=== PATIENT | female | born 1980 | race Caucasian/White ===

== ENCOUNTER 2017-07-13 14:36 | Inpatient (IN) | payer MEDICAID, OTHER ==
[~2017-07-13] VITALS: Ht 167.6 cm; Wt 52.4 kg
[~2017-07-13 14:36] MED LIST: BACL-19 PO; CHOL2000 PO; CYAN100063 PO; DIPH50CA PO; DOCU-131 PO; FLUO20CA8 PO; LACT10SO5 PO; LORA-445 PO; LORA0.5T PO; METF500T4 PO; MULT1TAB76 PO; OMEP-110 PO; PHYT1LIQ PO; RIFA550T4 PO; SULF1TAB24 PO; THIA100T6 PO; TRAM50TA2 PO; TRAZ100T15 PO
[2017-07-13] MEDS ORDERED: OMNIPAQUE 350 MG/ML, 100ML BOTTLE ONE (15:07)
[2017-07-13 15:44] LABS: BASOPHILS # (AUTO) 0.03 x10^3/uL (0-0.1); BASOPHILS % (AUTO) 0 % (0-1); EOSINOPHILS # (AUTO) 0.05 x10^3/uL (0-0.4); EOSINOPHILS % (AUTO) 1 % (1-7); LYMPHOCYTES # (AUTO) 1.26 x10^3/uL (1-3.4); LYMPHOCYTES % (AUTO) 14 % (22-44); MD NO; MEAN CORPUSCULAR HEMOGLOBIN 35.4 pg (27.0-34.8); MEAN CORPUSCULAR VOLUME 104.1 fL (80-100); MEAN PLATELET VOLUME 8.1 fL (7.4-10.4); MONOCYTES % (AUTO) 16 % (2-9); NEUTROPHILS # (AUTO) 6.25 x10^3/uL (1.8-6.8); NEUTROPHILS % (AUTO) 70 % (42-75); PLATELET COUNT 235 x10^3/uL (130-400); RED BLOOD COUNT 4.31 x10^6/uL (3.82-5.3); RED CELL DISTRIBUTION WIDTH 14.2 % (9.6-15.2)
[2017-07-13 15:50] LABS: INTERNATIONAL NORMALIZED RATIO 0.97 (0.93-1.1)
[2017-07-13] MEDS ORDERED: THIAMINE 200 MG in SODIUM CHLORIDE 0.9% 50 ML IV ONE (16:00)
[2017-07-13 16:28] LABS: FOLATE LEVEL > 20.0 ng/mL (3.1-17.5)
[2017-07-13] MEDS ORDERED: DOCUSATE 100 MG CAPSULE PO PRN (16:30)
[2017-07-13] MEDS ORDERED: ACETAMINOPHEN 325 MG TABLET PO PRN (16:30)
[2017-07-13] MEDS ORDERED: ONDANSETRON 2MG/ML, 2ML IVPush PRN (16:30)
[2017-07-13] MEDS ORDERED: morphine SULFATE 10 MG/ML, 1ML IVPush PRN (16:30)
[2017-07-13 17:04] LABS: MICROSCOPIC INDICATED
[2017-07-13 17:16] LABS: CULTURE INDICATED? NO
[2017-07-13] MEDS ORDERED: ENOXAPARIN 40 MG/0.4 ML ONE (17:30)
[2017-07-13 17:42] VITALS: BP 127/82
[2017-07-13] MEDS: ENOXAPARIN 40 MG/0.4 ML SQ SCH (17:50)
[2017-07-13] MEDS: D5%-0.45% NACL 1,000 ML IV SCH (17:50)
[2017-07-13 19:05] VITALS: BP 113/83
[2017-07-13] MEDS: FLUOXETINE HCL 20 MG CAPSULE PO SCH (21:00)
[2017-07-13] MEDS: RIFAXIMIN 550 MG TABLET PO SCH (21:00)
[2017-07-13] MEDS: INSULIN LISPRO 100 UNITS/ML, PEN SQ-INSULIN SCH (21:00)
[2017-07-14 01:41] VITALS: BP 110/80
[2017-07-14] MEDS: D5%-0.45% NACL 1,000 ML IV SCH (03:33)
[2017-07-14 04:51] VITALS: BP 127/82
[2017-07-14 05:23] LABS: CHLORIDE 118 mmol/L (98-107)
[2017-07-14 05:40] LABS: ANION GAP 13 mmol/L (5-15); CALCIUM 9.2 mg/dL (8.5-10.1); CREATININE 0.66 mg/dL (0.55-1.02)
[2017-07-14 05:54] LABS: MEAN CORPUSCULAR HEMOGLOBIN 33.6 pg (27.0-34.8); MEAN CORPUSCULAR HGB CONC 33.6 g/dL (32.4-35.8); MEAN PLATELET VOLUME 9.1 fL (7.4-10.4); PLATELET COUNT 298 x10^3/uL (130-400); RED BLOOD COUNT 3.93 x10^6/uL (3.82-5.3); RED CELL DISTRIBUTION WIDTH 13.8 % (9.6-15.2)
[2017-07-14 06:14] LABS: BASOPHILS # (AUTO) 0.05 x10^3/uL (0-0.1); BASOPHILS % (AUTO) 0 % (0-1); EOSINOPHILS # (AUTO) 0.07 x10^3/uL (0-0.4); EOSINOPHILS % (AUTO) 1 % (1-7); LYMPHOCYTES # (AUTO) 2.05 x10^3/uL (1-3.4); LYMPHOCYTES % (AUTO) 19 % (22-44); MD SCAN; MONOCYTES # (AUTO) 1.55 x10^3/uL (0.2-0.8); MONOCYTES % (AUTO) 14 % (2-9); NEUTROPHILS # (AUTO) 7.34 x10^3/uL (1.8-6.8); NEUTROPHILS % (AUTO) 66 % (42-75)
[2017-07-14] MEDS: INSULIN LISPRO 100 UNITS/ML, PEN SQ-INSULIN SCH ×3 (07:00→21:00)
[2017-07-14 07:11] VITALS: BP 118/79
[2017-07-14] MEDS ORDERED: POTASSIUM CHLORIDE 20 MEQ in DEXTROSE 5% 1,000 ML IV SCH (09:00)
[2017-07-14 09:47] LABS: FREE T4 (FREE THYROXINE) 0.42 ng/dL (0.76-1.46)
[2017-07-14] MEDS: LEVOTHYROXINE 100 MCG INJ IVPush SCH (10:02)
[2017-07-14 13:00] VITALS: BP 124/92
[2017-07-14] MEDS: RIFAXIMIN 550 MG TABLET PO SCH ×2 (13:17→21:40)
[2017-07-14] MEDS: THIAMINE 100MG TABLET PO SCH (13:17)
[2017-07-14] MEDS: MULTIVITS,STRESS FORMULA 1 TABLET PO SCH (13:17)
[2017-07-14 14:50] LABS: ANION GAP 9 mmol/L (5-15); CALCIUM 8.9 mg/dL (8.5-10.1); CHLORIDE 115 mmol/L (98-107); CREATININE 0.56 mg/dL (0.55-1.02)
[2017-07-14] MEDS: ENOXAPARIN 40 MG/0.4 ML SQ SCH (18:22)
[2017-07-14 20:16] VITALS: BP 108/74
[2017-07-14] MEDS: FLUOXETINE HCL 20 MG CAPSULE PO SCH (21:40)
[2017-07-15 00:40] VITALS: BP 119/83
[2017-07-15] MEDS: INSULIN LISPRO 100 UNITS/ML, PEN SQ-INSULIN SCH ×4 (03:00→20:24)
[2017-07-15 07:54] VITALS: BP 122/87
[2017-07-15 08:30] LABS: ALANINE AMINOTRANSFERASE 50 U/L (12-78); ALBUMIN 2.6 g/dL (3.4-5.0); ANION GAP 9 mmol/L (5-15); CALCIUM 8.9 mg/dL (8.5-10.1); CHLORIDE 112 mmol/L (98-107); CREATININE 0.42 mg/dL (0.55-1.02)
[2017-07-15 08:42] LABS: BASOPHILS # (AUTO) 0.04 x10^3/uL (0-0.1); BASOPHILS % (AUTO) 0 % (0-1); EOSINOPHILS # (AUTO) 0.25 x10^3/uL (0-0.4); EOSINOPHILS % (AUTO) 2 % (1-7); LYMPHOCYTES # (AUTO) 2.71 x10^3/uL (1-3.4); LYMPHOCYTES % (AUTO) 23 % (22-44); MD NO; MEAN CORPUSCULAR HEMOGLOBIN 33.5 pg (27.0-34.8); MEAN CORPUSCULAR HGB CONC 33.7 g/dL (32.4-35.8); MEAN CORPUSCULAR VOLUME 99.2 fL (80-100); MEAN PLATELET VOLUME 8.5 fL (7.4-10.4); MONOCYTES # (AUTO) 1.07 x10^3/uL (0.2-0.8); MONOCYTES % (AUTO) 9 % (2-9); NEUTROPHILS # (AUTO) 7.51 x10^3/uL (1.8-6.8); NEUTROPHILS % (AUTO) 65 % (42-75); PLATELET COUNT 283 x10^3/uL (130-400); RED BLOOD COUNT 3.36 x10^6/uL (3.82-5.3); RED CELL DISTRIBUTION WIDTH 13.9 % (9.6-15.2)
[2017-07-15 08:43] LABS: ALKALINE PHOSPHATASE 157 U/L (45-117); BILIRUBIN,TOTAL 0.7 mg/dL (0.2-1.0); TOTAL PROTEIN 6.9 g/dL (6.4-8.2)
[2017-07-15] MEDS: POTASSIUM CHLORIDE 20 MEQ PACKET PO SCH ×2 (09:00→20:23)
[2017-07-15] MEDS ORDERED: POTASSIUM CHLORIDE 20 MEQ TAB.ER.PRT PO SCH ×2 (09:00→21:00)
[2017-07-15] MEDS: MULTIVITS,STRESS FORMULA 1 TABLET PO SCH ×2 (09:29→11:23)
[2017-07-15] MEDS: RIFAXIMIN 550 MG TABLET PO SCH ×2 (09:29→20:24)
[2017-07-15] MEDS: THIAMINE 100MG TABLET PO SCH ×2 (09:29→11:23)
[2017-07-15] MEDS: LEVOTHYROXINE 100 MCG INJ IVPush SCH (09:29)
[2017-07-15] MEDS ORDERED: POTASSIUM CHLORIDE 20 MEQ PACKET ONE (09:49)
[2017-07-15 12:57] VITALS: BP 115/81
[2017-07-15] MEDS ORDERED: MAGNESIUM SULFATE PMX 4GM/100M 100 ML IV ONE (16:00)
[2017-07-15] MEDS: DEXTROSE 5% 500 ML IV SCH ×2 (16:00→22:40)
[2017-07-15] MEDS: ENOXAPARIN 40 MG/0.4 ML SQ SCH (17:24)
[2017-07-15 19:18] VITALS: BP 121/79
[2017-07-15] MEDS: FLUOXETINE HCL 20 MG CAPSULE PO SCH (20:23)
[2017-07-16 01:07] VITALS: BP 119/82
[2017-07-16] MEDS: INSULIN LISPRO 100 UNITS/ML, PEN SQ-INSULIN SCH ×4 (03:00→20:42)
[2017-07-16 08:13] VITALS: BP 124/82
[2017-07-16 08:24] LABS: BASOPHILS # (AUTO) 0.05 x10^3/uL (0-0.1); BASOPHILS % (AUTO) 1 % (0-1); EOSINOPHILS # (AUTO) 0.25 x10^3/uL (0-0.4); EOSINOPHILS % (AUTO) 2 % (1-7); LYMPHOCYTES % (AUTO) 22 % (22-44); MD NO; MEAN CORPUSCULAR HEMOGLOBIN 33.5 pg (27.0-34.8); MEAN CORPUSCULAR HGB CONC 33.8 g/dL (32.4-35.8); MEAN CORPUSCULAR VOLUME 99.3 fL (80-100); MEAN PLATELET VOLUME 8.4 fL (7.4-10.4); MONOCYTES # (AUTO) 0.71 x10^3/uL (0.2-0.8); MONOCYTES % (AUTO) 7 % (2-9); NEUTROPHILS % (AUTO) 69 % (42-75); PLATELET COUNT 290 x10^3/uL (130-400); RED BLOOD COUNT 3.45 x10^6/uL (3.82-5.3)
[2017-07-16 08:33] LABS: ALANINE AMINOTRANSFERASE 50 U/L (12-78); ALBUMIN 2.6 g/dL (3.4-5.0); ANION GAP 9 mmol/L (5-15); CALCIUM 8.2 mg/dL (8.5-10.1); CHLORIDE 108 mmol/L (98-107); CREATININE 0.39 mg/dL (0.55-1.02)
[2017-07-16 09:04] LABS: ALKALINE PHOSPHATASE 159 U/L (45-117); BILIRUBIN,TOTAL 0.9 mg/dL (0.2-1.0); TOTAL PROTEIN 7.1 g/dL (6.4-8.2)
[2017-07-16] MEDS: NEUTRA PHOS K 250 MG TABLET PO SCH ×2 (10:01→20:38)
[2017-07-16] MEDS: THIAMINE 100MG TABLET PO SCH (10:01)
[2017-07-16] MEDS: MULTIVITS,STRESS FORMULA 1 TABLET PO SCH (10:01)
[2017-07-16] MEDS: RIFAXIMIN 550 MG TABLET PO SCH ×2 (10:01→20:38)
[2017-07-16] MEDS: DEXTROSE 5% 1,000 ML IV SCH (10:29)
[2017-07-16] MEDS: LEVOTHYROXINE 100 MCG INJ IVPush SCH (10:58)
[2017-07-16 14:57] VITALS: BP 127/88
[2017-07-16] MEDS: ENOXAPARIN 40 MG/0.4 ML SQ SCH (15:28)
[2017-07-16] MEDS: THIAMINE 500 MG in SODIUM CHLORIDE 0.9% 50 ML IV SCH ×2 (15:50→20:38)
[2017-07-16] MEDS ORDERED: THIAMINE 100 MG/ML, 2ML IV SCH (16:00)
[2017-07-16] MEDS ORDERED: DEXTROSE 5% 1,000 ML IV SCH (16:00)
[2017-07-16 19:00] VITALS: BP 116/80
[2017-07-16] MEDS: FLUOXETINE HCL 20 MG CAPSULE PO SCH (20:38)
[2017-07-17] MEDS: DEXTROSE 5% 1,000 ML IV SCH ×2 (00:16→16:00)
[2017-07-17 01:17] VITALS: BP 121/83
[2017-07-17] MEDS: INSULIN LISPRO 100 UNITS/ML, PEN SQ-INSULIN SCH ×4 (03:00→21:00)
[2017-07-17 06:35] VITALS: BP 128/84
[2017-07-17] MEDS: THIAMINE 500 MG in SODIUM CHLORIDE 0.9% 50 ML IV SCH ×3 (08:43→20:43)
[2017-07-17] MEDS ORDERED: LEVOTHYROXINE 100 MCG INJ IVPush SCH (09:00)
[2017-07-17 09:15] LABS: BASOPHILS # (AUTO) 0.02 x10^3/uL (0-0.1); BASOPHILS % (AUTO) 0 % (0-1); EOSINOPHILS # (AUTO) 0.21 x10^3/uL (0-0.4); EOSINOPHILS % (AUTO) 2 % (1-7); LYMPHOCYTES # (AUTO) 1.57 x10^3/uL (1-3.4); LYMPHOCYTES % (AUTO) 15 % (22-44); MD NO; MEAN CORPUSCULAR HEMOGLOBIN 33.1 pg (27.0-34.8); MEAN CORPUSCULAR HGB CONC 33.4 g/dL (32.4-35.8); MEAN CORPUSCULAR VOLUME 99.1 fL (80-100); MEAN PLATELET VOLUME 8.9 fL (7.4-10.4); MONOCYTES # (AUTO) 0.84 x10^3/uL (0.2-0.8); MONOCYTES % (AUTO) 8 % (2-9); NEUTROPHILS # (AUTO) 8.21 x10^3/uL (1.8-6.8); NEUTROPHILS % (AUTO) 76 % (42-75); PLATELET COUNT 278 x10^3/uL (130-400); RED BLOOD COUNT 3.42 x10^6/uL (3.82-5.3); RED CELL DISTRIBUTION WIDTH 14.3 % (9.6-15.2)
[2017-07-17] MEDS: RIFAXIMIN 550 MG TABLET PO SCH ×2 (09:17→20:43)
[2017-07-17] MEDS: MULTIVITS,STRESS FORMULA 1 TABLET PO SCH (09:17)
[2017-07-17 09:25] LABS: ALANINE AMINOTRANSFERASE 60 U/L (12-78); ALBUMIN 2.7 g/dL (3.4-5.0); ANION GAP 8 mmol/L (5-15); CALCIUM 8.8 mg/dL (8.5-10.1); CHLORIDE 107 mmol/L (98-107); CREATININE 0.47 mg/dL (0.55-1.02)
[2017-07-17 09:28] LABS: ALKALINE PHOSPHATASE 164 U/L (45-117); BILIRUBIN,TOTAL 1.2 mg/dL (0.2-1.0); TOTAL PROTEIN 7.2 g/dL (6.4-8.2)
[2017-07-17] MEDS: NEUTRA PHOS K 250 MG TABLET PO SCH ×2 (10:04→20:43)
[2017-07-17] MEDS ORDERED: LEVOTHYROXINE 100 MCG INJ IVPush ONE (13:30)
[2017-07-17 13:54] VITALS: BP 119/82
[2017-07-17 16:16] LABS: MICROSCOPIC INDICATED
[2017-07-17 16:17] LABS: CULTURE INDICATED? YES
[2017-07-17] MEDS: ENOXAPARIN 40 MG/0.4 ML SQ SCH (16:52)
[2017-07-17 20:27] VITALS: BP 115/89
[2017-07-17] MEDS: FLUOXETINE HCL 20 MG CAPSULE PO SCH (20:43)
[2017-07-18 02:00] VITALS: BP 112/74
[2017-07-18] MEDS: INSULIN LISPRO 100 UNITS/ML, PEN SQ-INSULIN SCH ×4 (03:00→21:00)
[2017-07-18] MEDS: DEXTROSE 5% 1,000 ML IV SCH (05:00)
[2017-07-18 07:21] VITALS: BP 115/76
[2017-07-18] MEDS ORDERED: DOCUSATE 100 MG CAPSULE NG PRN (09:00)
[2017-07-18] MEDS ORDERED: LEVOTHYROXINE 100 MCG INJ IVPush SCH (09:00)
[2017-07-18] MEDS ORDERED: NEUTRA PHOS K 250 MG TABLET NG SCH (09:00)
[2017-07-18] MEDS: RIFAXIMIN 550 MG TABLET PO SCH ×2 (09:14→22:39)
[2017-07-18] MEDS: MULTIVITS,STRESS FORMULA 1 TABLET NG SCH (09:14)
[2017-07-18] MEDS: THIAMINE 500 MG in SODIUM CHLORIDE 0.9% 50 ML IV SCH (09:14)
[2017-07-18 13:51] VITALS: BP 109/74
[2017-07-18] MEDS ORDERED: THIAMINE 100MG TABLET PO SCH (15:09)
[2017-07-18] MEDS ORDERED: THIAMINE 100 MG in SODIUM CHLORIDE 0.9% 50 ML IV SCH (15:30)
[2017-07-18] MEDS: D5%-0.9% NACL+KCL 20MEQ 1,000 ML IV SCH (15:50)
[2017-07-18] MEDS: CEFTRIAXONE PMX 1GM/50ML 50 ML IV SCH (16:35)
[2017-07-18] MEDS: ENOXAPARIN 40 MG/0.4 ML SQ SCH (16:35)
[2017-07-18 19:06] VITALS: BP 117/82
[2017-07-18] MEDS: FLUOXETINE HCL 20 MG CAPSULE NG SCH (22:39)
[2017-07-19 02:49] VITALS: BP 117/76
[2017-07-19] MEDS: INSULIN LISPRO 100 UNITS/ML, PEN SQ-INSULIN SCH ×4 (03:00→21:00)
[2017-07-19 05:19] LABS: BASOPHILS # (AUTO) 0.08 x10^3/uL (0-0.1); BASOPHILS % (AUTO) 1 % (0-1); EOSINOPHILS # (AUTO) 0.22 x10^3/uL (0-0.4); EOSINOPHILS % (AUTO) 2 % (1-7); LYMPHOCYTES # (AUTO) 2.24 x10^3/uL (1-3.4); LYMPHOCYTES % (AUTO) 21 % (22-44); MD NO; MEAN CORPUSCULAR HEMOGLOBIN 33.7 pg (27.0-34.8); MEAN CORPUSCULAR VOLUME 99.1 fL (80-100); MEAN PLATELET VOLUME 8.7 fL (7.4-10.4); MONOCYTES # (AUTO) 1.09 x10^3/uL (0.2-0.8); MONOCYTES % (AUTO) 10 % (2-9); NEUTROPHILS # (AUTO) 7.23 x10^3/uL (1.8-6.8); NEUTROPHILS % (AUTO) 67 % (42-75); PLATELET COUNT 322 x10^3/uL (130-400); RED BLOOD COUNT 3.17 x10^6/uL (3.82-5.3); RED CELL DISTRIBUTION WIDTH 14.1 % (9.6-15.2)
[2017-07-19 05:47] LABS: CHLORIDE 111 mmol/L (98-107)
[2017-07-19] MEDS: D5%-0.9% NACL+KCL 20MEQ 1,000 ML IV SCH (05:51)
[2017-07-19 06:10] LABS: ALANINE AMINOTRANSFERASE 49 U/L (12-78); ALBUMIN 2.5 g/dL (3.4-5.0); ALKALINE PHOSPHATASE 155 U/L (45-117); ANION GAP 11 mmol/L (5-15); BILIRUBIN,TOTAL 0.9 mg/dL (0.2-1.0); CALCIUM 8.1 mg/dL (8.5-10.1); CREATININE 0.39 mg/dL (0.55-1.02); TOTAL PROTEIN 6.2 g/dL (6.4-8.2)
[2017-07-19 07:49] VITALS: BP 113/78
[2017-07-19] MEDS: FOLIC ACID 1 MG in DEXTROSE 5% 50 ML IV SCH (09:24)
[2017-07-19] MEDS: LEVOTHYROXINE 100 MCG INJ IVPush SCH (09:24)
[2017-07-19] MEDS: MULTIVITS,STRESS FORMULA 1 TABLET NG SCH (09:24)
[2017-07-19] MEDS: RIFAXIMIN 550 MG TABLET PO SCH ×2 (09:25→23:22)
[2017-07-19] MEDS: THIAMINE 100MG TABLET PO/NG SCH (09:25)
[2017-07-19 13:31] VITALS: BP 125/75
[2017-07-19] MEDS: ERGOCALCIFEROL 50,000 UNIT CAPSULE PO SCH (14:30)
[2017-07-19] MEDS ORDERED: POTASSIUM CHLORIDE 40 MEQ in SODIUM CHLORIDE 0.9% 500 ML IV ONE (14:30)
[2017-07-19] MEDS: CEFTRIAXONE PMX 1GM/50ML 50 ML IV SCH (14:57)
[2017-07-19] MEDS: ENOXAPARIN 40 MG/0.4 ML SQ SCH (17:09)
[2017-07-19 19:43] VITALS: BP 118/59
[2017-07-19] MEDS: FLUOXETINE HCL 20 MG CAPSULE NG SCH (23:22)
[2017-07-20 00:49] VITALS: BP 123/82
[2017-07-20] MEDS: D5%-0.9% NACL+KCL 20MEQ 1,000 ML IV SCH ×3 (02:07→22:20)
[2017-07-20] MEDS: INSULIN LISPRO 100 UNITS/ML, PEN SQ-INSULIN SCH ×4 (03:00→21:00)
[2017-07-20] MEDS: LEVOTHYROXINE 100 MCG INJ IVPush SCH (05:55)
[2017-07-20 08:11] VITALS: BP 131/80
[2017-07-20] MEDS: ACETAMINOPHEN 325 MG TABLET PO/NG PRN ×3 (08:23→22:20)
[2017-07-20] MEDS: RIFAXIMIN 550 MG TABLET PO SCH ×2 (08:27→22:20)
[2017-07-20] MEDS: CHOLECALCIFEROL 1,000 UNIT TABLET NG SCH (08:30)
[2017-07-20] MEDS: MULTIVITS,STRESS FORMULA 1 TABLET NG SCH (08:36)
[2017-07-20] MEDS: THIAMINE 100MG TABLET PO/NG SCH (08:37)
[2017-07-20] MEDS: FOLIC ACID 1 MG in DEXTROSE 5% 50 ML IV SCH (09:33)
[2017-07-20 13:34] VITALS: BP 130/74
[2017-07-20] MEDS: CEFTRIAXONE PMX 1GM/50ML 50 ML IV SCH (14:38)
[2017-07-20] MEDS: ENOXAPARIN 40 MG/0.4 ML SQ SCH (16:46)
[2017-07-20 19:56] VITALS: BP 124/77
[2017-07-20] MEDS: FLUOXETINE HCL 20 MG CAPSULE NG SCH (22:21)
[2017-07-21 00:22] VITALS: BP_SYST 120; BP_SYST 125; BP_DIAS 59
[2017-07-21] MEDS: LEVOTHYROXINE 100 MCG INJ IVPush SCH (06:26)
[2017-07-21] MEDS: INSULIN LISPRO 100 UNITS/ML, PEN SQ-INSULIN SCH ×4 (07:00→20:39)
[2017-07-21 07:16] VITALS: BP 126/73
[2017-07-21] MEDS: MULTIVITS,STRESS FORMULA 1 TABLET NG SCH (10:07)
[2017-07-21] MEDS: CHOLECALCIFEROL 1,000 UNIT TABLET NG SCH (10:07)
[2017-07-21] MEDS: THIAMINE 100MG TABLET PO/NG SCH (10:07)
[2017-07-21] MEDS: RIFAXIMIN 550 MG TABLET PO SCH ×2 (10:07→21:30)
[2017-07-21] MEDS: FOLIC ACID 1 MG in DEXTROSE 5% 50 ML IV SCH (10:41)
[2017-07-21 12:36] LABS: BASOPHILS # (AUTO) 0.04 x10^3/uL (0-0.1); BASOPHILS % (AUTO) 0 % (0-1); EOSINOPHILS # (AUTO) 0.24 x10^3/uL (0-0.4); EOSINOPHILS % (AUTO) 3 % (1-7); LYMPHOCYTES # (AUTO) 1.95 x10^3/uL (1-3.4); LYMPHOCYTES % (AUTO) 24 % (22-44); MD NO; MEAN CORPUSCULAR HEMOGLOBIN 32.7 pg (27.0-34.8); MEAN CORPUSCULAR HGB CONC 32.5 g/dL (32.4-35.8); MEAN CORPUSCULAR VOLUME 100.6 fL (80-100); MEAN PLATELET VOLUME 9.1 fL (7.4-10.4); MONOCYTES # (AUTO) 0.77 x10^3/uL (0.2-0.8); MONOCYTES % (AUTO) 10 % (2-9); NEUTROPHILS % (AUTO) 63 % (42-75); PLATELET COUNT 388 x10^3/uL (130-400); RED BLOOD COUNT 3.26 x10^6/uL (3.82-5.3); RED CELL DISTRIBUTION WIDTH 14.4 % (9.6-15.2)
[2017-07-21 12:52] LABS: ANION GAP 10 mmol/L (5-15); CHLORIDE 113 mmol/L (98-107); CREATININE 0.36 mg/dL (0.55-1.02)
[2017-07-21 13:11] VITALS: BP 112/77
[2017-07-21] MEDS: CEFTRIAXONE PMX 1GM/50ML 50 ML IV SCH (13:24)
[2017-07-21] MEDS: D5%-0.9% NACL+KCL 20MEQ 1,000 ML IV SCH (13:41)
[2017-07-21] MEDS: ENOXAPARIN 40 MG/0.4 ML SQ SCH (16:04)
[2017-07-21 20:00] VITALS: BP 104/71
[2017-07-21] MEDS: FLUOXETINE HCL 20 MG CAPSULE NG SCH (21:30)
[2017-07-22 02:00] VITALS: BP 116/76
[2017-07-22] MEDS: INSULIN LISPRO 100 UNITS/ML, PEN SQ-INSULIN SCH ×4 (07:00→21:00)
[2017-07-22] MEDS: FOLIC ACID 1 MG in DEXTROSE 5% 50 ML IV SCH (11:16)
[2017-07-22] MEDS: CHOLECALCIFEROL 1,000 UNIT TABLET NG SCH (11:16)
[2017-07-22] MEDS: LEVOTHYROXINE 100 MCG INJ IVPush SCH (11:16)
[2017-07-22] MEDS: RIFAXIMIN 550 MG TABLET PO SCH ×2 (11:17→22:00)
[2017-07-22] MEDS: MULTIVITS,STRESS FORMULA 1 TABLET NG SCH (11:17)
[2017-07-22] MEDS: THIAMINE 100MG TABLET PO/NG SCH (11:19)
[2017-07-22 15:22] VITALS: BP 100/64
[2017-07-22] MEDS: CEFTRIAXONE PMX 1GM/50ML 50 ML IV SCH (15:42)
[2017-07-22] MEDS: ENOXAPARIN 40 MG/0.4 ML SQ SCH (18:30)
[2017-07-22 18:46] VITALS: BP 108/71
[2017-07-22] MEDS: FLUOXETINE HCL 20 MG CAPSULE NG SCH (22:01)
[2017-07-23 01:44] VITALS: BP 104/73
[2017-07-23] MEDS: D5%-0.9% NACL+KCL 20MEQ 1,000 ML IV SCH (02:29)
[2017-07-23] MEDS: INSULIN LISPRO 100 UNITS/ML, PEN SQ-INSULIN SCH ×2 (07:00→11:00)
[2017-07-23] MEDS: LEVOTHYROXINE 100 MCG INJ IVPush SCH (07:00)
[2017-07-23 07:56] VITALS: BP 111/70
[2017-07-23] MEDS: LEVOTHYROXINE 100 MCG TABLET PO SCH (08:30)
[2017-07-23] MEDS: THIAMINE 100MG TABLET PO/NG SCH (09:00)
[2017-07-23] MEDS: MULTIVITS,STRESS FORMULA 1 TABLET NG SCH (09:00)
[2017-07-23] MEDS: FOLIC ACID 1 MG in DEXTROSE 5% 50 ML IV SCH (09:00)
[2017-07-23] MEDS: RIFAXIMIN 550 MG TABLET PO SCH ×2 (09:00→22:08)
[2017-07-23] MEDS: CHOLECALCIFEROL 1,000 UNIT TABLET NG SCH (09:00)
[2017-07-23 14:00] VITALS: BP 116/73
[2017-07-23] MEDS ORDERED: ONDANSETRON ODT 4 MG PO PRN (14:00)
[2017-07-23] MEDS: ENOXAPARIN 40 MG/0.4 ML SQ SCH (17:09)
[2017-07-23 20:04] VITALS: BP 146/73
[2017-07-23] MEDS: CEFDINIR 300 MG CAPSULE PO SCH (22:08)
[2017-07-23] MEDS: FLUOXETINE HCL 20 MG CAPSULE NG SCH (22:08)
[2017-07-24 01:22] VITALS: BP 121/82
[2017-07-24] MEDS: LEVOTHYROXINE 100 MCG TABLET PO SCH (05:54)
[2017-07-24 07:40] VITALS: BP 113/81
[2017-07-24] MEDS: MULTIVITS,STRESS FORMULA 1 TABLET NG SCH (09:53)
[2017-07-24] MEDS: CHOLECALCIFEROL 1,000 UNIT TABLET NG SCH (09:53)
[2017-07-24] MEDS: CEFDINIR 300 MG CAPSULE PO SCH ×2 (09:53→21:47)
[2017-07-24] MEDS: RIFAXIMIN 550 MG TABLET PO SCH ×2 (09:53→21:48)
[2017-07-24] MEDS: THIAMINE 100MG TABLET PO/NG SCH (09:54)
[2017-07-24] MEDS: FOLIC ACID 1 MG TABLET PO SCH (09:54)
[2017-07-24 14:26] VITALS: BP 123/75
[2017-07-24] MEDS: ENOXAPARIN 40 MG/0.4 ML SQ SCH (18:13)
[2017-07-24 20:00] VITALS: BP 118/85
[2017-07-24] MEDS: ACETAMINOPHEN 325 MG TABLET PO/NG PRN (21:48)
[2017-07-24] MEDS: FLUOXETINE HCL 20 MG CAPSULE NG SCH (21:48)
[2017-07-25 02:11] VITALS: BP 123/77
[2017-07-25] MEDS: LEVOTHYROXINE 100 MCG TABLET PO SCH (06:14)
[2017-07-25 07:56] VITALS: BP 113/69
[2017-07-25 08:23] LABS: CLOSTRIDIUM DIFFICILE ANTIGEN POSITIVE; CLOSTRIDIUM DIFFICILE TOXIN NEGATIVE (Negative)
[2017-07-25] MEDS: FOLIC ACID 1 MG TABLET PO SCH (09:00)
[2017-07-25] MEDS: MULTIVITS,STRESS FORMULA 1 TABLET NG SCH (09:34)
[2017-07-25] MEDS: CEFDINIR 300 MG CAPSULE PO SCH ×2 (09:34→20:48)
[2017-07-25] MEDS: RIFAXIMIN 550 MG TABLET PO SCH ×2 (09:35→20:48)
[2017-07-25] MEDS: CHOLECALCIFEROL 1,000 UNIT TABLET NG SCH (09:35)
[2017-07-25] MEDS: THIAMINE 100MG TABLET PO/NG SCH (09:35)
[2017-07-25 13:07] VITALS: BP 137/57
[2017-07-25] MEDS: ENOXAPARIN 40 MG/0.4 ML SQ SCH (16:31)
[2017-07-25] MEDS: FLUOXETINE HCL 20 MG CAPSULE NG SCH (20:48)
[2017-07-25 23:00] VITALS: BP 124/71
[2017-07-26 02:23] VITALS: BP 142/84
[2017-07-26] MEDS: LEVOTHYROXINE 100 MCG TABLET PO SCH (05:13)
[2017-07-26 06:42] LABS: BASOPHILS # (AUTO) 0.05 x10^3/uL (0-0.1); BASOPHILS % (AUTO) 1 % (0-1); EOSINOPHILS # (AUTO) 0.15 x10^3/uL (0-0.4); EOSINOPHILS % (AUTO) 2 % (1-7); LYMPHOCYTES # (AUTO) 1.72 x10^3/uL (1-3.4); LYMPHOCYTES % (AUTO) 17 % (22-44); MD NO; MEAN CORPUSCULAR HGB CONC 33.6 g/dL (32.4-35.8); MEAN CORPUSCULAR VOLUME 98.1 fL (80-100); MEAN PLATELET VOLUME 7.5 fL (7.4-10.4); MONOCYTES % (AUTO) 11 % (2-9); NEUTROPHILS % (AUTO) 71 % (42-75); PLATELET COUNT 480 x10^3/uL (130-400); RED BLOOD COUNT 3.38 x10^6/uL (3.82-5.3); RED CELL DISTRIBUTION WIDTH 13.7 % (9.6-15.2)
[2017-07-26 06:43] LABS: ANION GAP 8 mmol/L (5-15); CALCIUM 8.4 mg/dL (8.5-10.1); CHLORIDE 109 mmol/L (98-107); CREATININE 0.38 mg/dL (0.55-1.02)
[2017-07-26 08:00] VITALS: BP 125/99
[2017-07-26] MEDS: RIFAXIMIN 550 MG TABLET PO SCH ×2 (09:29→20:55)
[2017-07-26] MEDS: MULTIVITS,STRESS FORMULA 1 TABLET NG SCH (09:29)
[2017-07-26] MEDS: FOLIC ACID 1 MG TABLET PO SCH (09:29)
[2017-07-26] MEDS: CEFDINIR 300 MG CAPSULE PO SCH ×2 (09:30→20:55)
[2017-07-26] MEDS: THIAMINE 100MG TABLET PO/NG SCH (09:30)
[2017-07-26] MEDS: CHOLECALCIFEROL 1,000 UNIT TABLET NG SCH (09:30)
[2017-07-26 12:44] VITALS: BP 136/77
[2017-07-26] MEDS: ERGOCALCIFEROL 50,000 UNIT CAPSULE PO SCH (14:30)
[2017-07-26] MEDS: ENOXAPARIN 40 MG/0.4 ML SQ SCH (15:42)
[2017-07-26 20:15] VITALS: BP 131/79
[2017-07-26] MEDS: FLUOXETINE HCL 20 MG CAPSULE NG SCH (20:55)
[2017-07-27 03:15] VITALS: BP 117/66
[2017-07-27] MEDS: LEVOTHYROXINE 100 MCG TABLET PO SCH (05:25)
[2017-07-27 05:37] LABS: BASOPHILS # (AUTO) 0.04 x10^3/uL (0-0.1); BASOPHILS % (AUTO) 0 % (0-1); EOSINOPHILS # (AUTO) 0.16 x10^3/uL (0-0.4); EOSINOPHILS % (AUTO) 2 % (1-7); LYMPHOCYTES # (AUTO) 1.98 x10^3/uL (1-3.4); LYMPHOCYTES % (AUTO) 21 % (22-44); MD NO; MEAN CORPUSCULAR HEMOGLOBIN 31.9 pg (27.0-34.8); MEAN CORPUSCULAR HGB CONC 32.2 g/dL (32.4-35.8); MEAN PLATELET VOLUME 8.1 fL (7.4-10.4); MONOCYTES # (AUTO) 1.03 x10^3/uL (0.2-0.8); MONOCYTES % (AUTO) 11 % (2-9); NEUTROPHILS # (AUTO) 6.23 x10^3/uL (1.8-6.8); NEUTROPHILS % (AUTO) 66 % (42-75); PLATELET COUNT 390 x10^3/uL (130-400); RED BLOOD COUNT 3.79 x10^6/uL (3.82-5.3)
[2017-07-27 05:48] LABS: ANION GAP 10 mmol/L (5-15); CALCIUM 8.4 mg/dL (8.5-10.1); CHLORIDE 109 mmol/L (98-107)
[2017-07-27 08:00] VITALS: BP 109/71
[2017-07-27] MEDS: FOLIC ACID 1 MG TABLET PO SCH (09:00)
[2017-07-27] MEDS: MULTIVITS,STRESS FORMULA 1 TABLET NG SCH (09:01)
[2017-07-27] MEDS: CHOLECALCIFEROL 1,000 UNIT TABLET NG SCH (09:01)
[2017-07-27] MEDS: RIFAXIMIN 550 MG TABLET PO SCH ×2 (09:01→20:25)
[2017-07-27] MEDS: THIAMINE 100MG TABLET PO/NG SCH (09:02)
[2017-07-27 13:28] VITALS: BP 105/80
[2017-07-27] MEDS: ENOXAPARIN 40 MG/0.4 ML SQ SCH (16:04)
[2017-07-27 19:21] VITALS: BP 96/60
[2017-07-27] MEDS: FLUOXETINE HCL 20 MG CAPSULE NG SCH (20:25)
[2017-07-28 00:47] VITALS: BP 108/50
[2017-07-28] MEDS: LEVOTHYROXINE 100 MCG TABLET PO SCH (05:29)
[2017-07-28 07:34] VITALS: BP 112/76
[2017-07-28 08:58] LABS: FREE T4 (FREE THYROXINE) 2.12 ng/dL (0.76-1.46); THYROID STIMULATING HORMONE 5.26 mIU/L (0.358-3.740)
[2017-07-28] MEDS: CHOLECALCIFEROL 1,000 UNIT TABLET NG SCH (10:05)
[2017-07-28] MEDS: FOLIC ACID 1 MG TABLET PO SCH (10:05)
[2017-07-28] MEDS: VANCOMYCIN 50 MG/ML ORAL SUSP PO SCH ×3 (10:05→23:22)
[2017-07-28] MEDS: RIFAXIMIN 550 MG TABLET PO SCH ×2 (10:06→20:54)
[2017-07-28] MEDS: THIAMINE 100MG TABLET PO/NG SCH (10:07)
[2017-07-28] MEDS: MULTIVITS,STRESS FORMULA 1 TABLET NG SCH (12:19)
[2017-07-28 13:22] VITALS: BP 160/87
[2017-07-28] MEDS: ENOXAPARIN 40 MG/0.4 ML SQ SCH (16:47)
[2017-07-28] MEDS: FLUOXETINE HCL 20 MG CAPSULE NG SCH (20:54)
[2017-07-28 21:01] VITALS: BP 127/75
[2017-07-29 02:11] VITALS: BP 117/72
[2017-07-29] MEDS: ACETAMINOPHEN 325 MG TABLET PO/NG PRN (05:40)
[2017-07-29] MEDS: VANCOMYCIN 50 MG/ML ORAL SUSP PO SCH ×4 (05:41→23:09)
[2017-07-29] MEDS: LEVOTHYROXINE 100 MCG TABLET PO SCH (05:41)
[2017-07-29 07:38] VITALS: BP 130/77
[2017-07-29] MEDS: FOLIC ACID 1 MG TABLET PO SCH (10:14)
[2017-07-29] MEDS: RIFAXIMIN 550 MG TABLET PO SCH ×2 (10:14→21:51)
[2017-07-29] MEDS: THIAMINE 100MG TABLET PO/NG SCH (10:15)
[2017-07-29] MEDS: MULTIVITS,STRESS FORMULA 1 TABLET NG SCH (10:15)
[2017-07-29] MEDS: CHOLECALCIFEROL 1,000 UNIT TABLET NG SCH (10:15)
[2017-07-29 13:30] VITALS: BP 122/89
[2017-07-29] MEDS: ENOXAPARIN 40 MG/0.4 ML SQ SCH (17:12)
[2017-07-29 19:43] VITALS: BP 122/66
[2017-07-29] MEDS: FLUOXETINE HCL 20 MG CAPSULE NG SCH (21:51)
[2017-07-30 00:44] VITALS: BP 113/71
[2017-07-30] MEDS: LEVOTHYROXINE 100 MCG TABLET PO SCH (05:49)
[2017-07-30] MEDS: VANCOMYCIN 50 MG/ML ORAL SUSP PO SCH ×4 (05:49→22:33)
[2017-07-30 08:02] VITALS: BP 124/96
[2017-07-30] MEDS: CHOLECALCIFEROL 1,000 UNIT TABLET NG SCH (09:58)
[2017-07-30] MEDS: RIFAXIMIN 550 MG TABLET PO SCH ×2 (09:58→22:33)
[2017-07-30] MEDS: FOLIC ACID 1 MG TABLET PO SCH (09:58)
[2017-07-30] MEDS: MULTIVITS,STRESS FORMULA 1 TABLET NG SCH (09:58)
[2017-07-30] MEDS: THIAMINE 100MG TABLET PO/NG SCH (09:59)
[2017-07-30 13:46] VITALS: BP 108/48
[2017-07-30 18:33] VITALS: BP 128/40
[2017-07-30] MEDS: ENOXAPARIN 40 MG/0.4 ML SQ SCH (18:37)
[2017-07-30] MEDS: FLUOXETINE HCL 20 MG CAPSULE NG SCH (22:33)
[2017-07-31 01:10] VITALS: BP 108/70
[2017-07-31] MEDS: VANCOMYCIN 50 MG/ML ORAL SUSP PO SCH ×4 (05:29→23:42)
[2017-07-31] MEDS: LEVOTHYROXINE 100 MCG TABLET PO SCH (05:29)
[2017-07-31 07:25] VITALS: BP 122/69
[2017-07-31] MEDS: CHOLECALCIFEROL 1,000 UNIT TABLET NG SCH (09:09)
[2017-07-31] MEDS: THIAMINE 100MG TABLET PO/NG SCH (09:09)
[2017-07-31] MEDS: FOLIC ACID 1 MG TABLET PO SCH (09:09)
[2017-07-31] MEDS: MULTIVITS,STRESS FORMULA 1 TABLET NG SCH (09:09)
[2017-07-31] MEDS: RIFAXIMIN 550 MG TABLET PO SCH ×2 (09:09→21:58)
[2017-07-31 14:30] VITALS: BP 116/72
[2017-07-31] MEDS: ENOXAPARIN 40 MG/0.4 ML SQ SCH (17:13)
[2017-07-31 21:29] VITALS: BP 101/68
[2017-07-31] MEDS: FLUOXETINE HCL 20 MG CAPSULE NG SCH (21:58)
[2017-08-01 00:22] VITALS: BP 113/58
[2017-08-01] MEDS: VANCOMYCIN 50 MG/ML ORAL SUSP PO SCH ×5 (05:23→23:00)
[2017-08-01] MEDS: LEVOTHYROXINE 100 MCG TABLET PO SCH (05:24)
[2017-08-01 09:04] VITALS: BP 148/72
[2017-08-01] MEDS: FOLIC ACID 1 MG TABLET PO SCH (09:17)
[2017-08-01] MEDS: RIFAXIMIN 550 MG TABLET PO SCH ×2 (09:17→21:53)
[2017-08-01] MEDS: THIAMINE 100MG TABLET PO/NG SCH (09:17)
[2017-08-01] MEDS: MULTIVITS,STRESS FORMULA 1 TABLET NG SCH (09:18)
[2017-08-01] MEDS: CHOLECALCIFEROL 1,000 UNIT TABLET NG SCH (09:18)
[2017-08-01 13:14] VITALS: BP 117/57
[2017-08-01] MEDS: ENOXAPARIN 40 MG/0.4 ML SQ SCH (17:02)
[2017-08-01 20:00] VITALS: BP 132/57
[2017-08-01] MEDS: FLUOXETINE HCL 20 MG CAPSULE NG SCH (21:53)
[2017-08-02 02:00] VITALS: BP 133/75
[2017-08-02] MEDS: VANCOMYCIN 50 MG/ML ORAL SUSP PO SCH ×4 (05:39→22:23)
[2017-08-02] MEDS: LEVOTHYROXINE 100 MCG TABLET PO SCH (05:40)
[2017-08-02 08:00] VITALS: BP 123/64
[2017-08-02] MEDS: MULTIVITS,STRESS FORMULA 1 TABLET NG SCH (09:33)
[2017-08-02] MEDS: THIAMINE 100MG TABLET PO/NG SCH (09:33)
[2017-08-02] MEDS: CHOLECALCIFEROL 1,000 UNIT TABLET NG SCH (09:33)
[2017-08-02] MEDS: RIFAXIMIN 550 MG TABLET PO SCH ×2 (09:33→22:23)
[2017-08-02] MEDS: FOLIC ACID 1 MG TABLET PO SCH (09:33)
[2017-08-02 12:23] VITALS: BP 120/56
[2017-08-02] MEDS: ENOXAPARIN 40 MG/0.4 ML SQ SCH (16:44)
[2017-08-02] MEDS: ERGOCALCIFEROL 50,000 UNIT CAPSULE PO SCH (16:45)
[2017-08-02 22:15] VITALS: BP 117/83
[2017-08-02] MEDS: FLUOXETINE HCL 20 MG CAPSULE NG SCH (22:23)
[2017-08-03] VITALS (13 sets, daily range): BP systolic 102–143; BP diastolic 66–85
[2017-08-03] MEDS: LEVOTHYROXINE 100 MCG TABLET PO SCH (05:13)
[2017-08-03] MEDS: VANCOMYCIN 50 MG/ML ORAL SUSP PO SCH ×4 (05:14→23:48)
[2017-08-03] MEDS: MULTIVITS,STRESS FORMULA 1 TABLET NG SCH (10:03)
[2017-08-03] MEDS: RIFAXIMIN 550 MG TABLET PO SCH ×2 (10:04→21:04)
[2017-08-03] MEDS: THIAMINE 100MG TABLET PO/NG SCH (10:04)
[2017-08-03] MEDS: CHOLECALCIFEROL 1,000 UNIT TABLET NG SCH (10:04)
[2017-08-03] MEDS: FOLIC ACID 1 MG TABLET PO SCH (10:04)
[2017-08-03] MEDS: ACETAMINOPHEN 325 MG TABLET PO/NG PRN (13:23)
[2017-08-03] MEDS: ENOXAPARIN 40 MG/0.4 ML SQ SCH (16:52)
[2017-08-03] MEDS: FLUOXETINE HCL 20 MG CAPSULE NG SCH (21:04)
[2017-08-04 01:39] VITALS: BP 131/48
[2017-08-04 02:08] VITALS: BP 103/71
[2017-08-04] MEDS: LEVOTHYROXINE 100 MCG TABLET PO SCH (04:49)
[2017-08-04] MEDS: VANCOMYCIN 50 MG/ML ORAL SUSP PO SCH ×4 (04:49→23:54)
[2017-08-04 07:24] VITALS: BP 132/102
[2017-08-04] MEDS: MULTIVITS,STRESS FORMULA 1 TABLET NG SCH (10:10)
[2017-08-04] MEDS: RIFAXIMIN 550 MG TABLET PO SCH ×2 (10:10→20:35)
[2017-08-04] MEDS: CHOLECALCIFEROL 1,000 UNIT TABLET NG SCH (10:11)
[2017-08-04] MEDS: FOLIC ACID 1 MG TABLET PO SCH (10:11)
[2017-08-04] MEDS: THIAMINE 100MG TABLET PO/NG SCH (10:11)
[2017-08-04 13:50] VITALS: BP 116/65
[2017-08-04] MEDS: ENOXAPARIN 40 MG/0.4 ML SQ SCH (17:11)
[2017-08-04 19:23] VITALS: BP 116/72
[2017-08-04] MEDS: FLUOXETINE HCL 20 MG CAPSULE NG SCH (20:35)
[2017-08-05 01:35] VITALS: BP 131/88
[2017-08-05] MEDS: VANCOMYCIN 50 MG/ML ORAL SUSP PO SCH ×4 (06:00→23:15)
[2017-08-05] MEDS: LEVOTHYROXINE 100 MCG TABLET PO SCH (06:00)
[2017-08-05 07:50] VITALS: BP 129/78
[2017-08-05] MEDS: MULTIVITS,STRESS FORMULA 1 TABLET NG SCH (10:04)
[2017-08-05] MEDS: FOLIC ACID 1 MG TABLET PO SCH (10:04)
[2017-08-05] MEDS: RIFAXIMIN 550 MG TABLET PO SCH ×2 (10:04→20:45)
[2017-08-05] MEDS: CHOLECALCIFEROL 1,000 UNIT TABLET NG SCH (10:04)
[2017-08-05] MEDS: THIAMINE 100MG TABLET PO/NG SCH (10:24)
[2017-08-05 14:50] VITALS: BP 127/90
[2017-08-05] MEDS: ENOXAPARIN 40 MG/0.4 ML SQ SCH (17:42)
[2017-08-05 19:58] VITALS: BP 102/69
[2017-08-05] MEDS: FLUOXETINE HCL 20 MG CAPSULE NG SCH (20:45)
[2017-08-06 01:08] VITALS: BP 119/83
[2017-08-06] MEDS: LEVOTHYROXINE 100 MCG TABLET PO SCH (05:49)
[2017-08-06] MEDS: VANCOMYCIN 50 MG/ML ORAL SUSP PO SCH ×3 (05:49→17:00)
[2017-08-06 08:11] VITALS: BP 146/91
[2017-08-06] MEDS: MULTIVITS,STRESS FORMULA 1 TABLET NG SCH (09:24)
[2017-08-06] MEDS: RIFAXIMIN 550 MG TABLET PO SCH (09:24)
[2017-08-06] MEDS: FOLIC ACID 1 MG TABLET PO SCH (09:24)
[2017-08-06] MEDS: THIAMINE 100MG TABLET PO/NG SCH (09:24)
[2017-08-06] MEDS: CHOLECALCIFEROL 1,000 UNIT TABLET NG SCH (09:24)
[2017-08-06 13:17] VITALS: BP 117/78
[2017-08-06] MEDS: ENOXAPARIN 40 MG/0.4 ML SQ SCH (16:30)
[2017-08-06] MEDS ORDERED: VANC1VIA3 PO (16:58)
[2017-08-06] MEDS ORDERED: FLUO20CA8 NG (16:58)
[2017-08-06] MEDS ORDERED: FOLI-17 PO (16:58)
[2017-08-06] MEDS ORDERED: CHOL10003 NG (16:58)
[2017-08-06] MEDS ORDERED: RIFA550T4 PO (16:58)
[2017-08-06] MEDS ORDERED: LEVO100T PO (16:58)
[2017-08-06] MEDS ORDERED: ACET325T14 PO/NG (16:58)
[2017-08-06] MEDS ORDERED: ERGO500017 PO (16:58)
[2017-08-06] MEDS ORDERED: MULT1TAB76 NG (16:58)
[2017-08-06] MEDS ORDERED: THIA100T6 PO/NG (16:58)
[2017-08-06] MEDS ORDERED: DOCU-131 NG (16:58)
[2017-08-06] MEDS ORDERED: ONDA4TAB13 PO (16:58)
== END 2017-08-06 17:23 | DRG 80 ==
LOC: ED 14:52 → EDIP 16:16 → 4WST 17:27 → 4EST 08-05 15:19
PROVIDERS: ADMIT Family Medicine; ATTEND Family Medicine
PROC: 0T9B70Z Drainage of Bladder with Drainage Device, Via Natural or Artificial Opening (ICD-10-PCS; principal; 2017-07-13)
DX: E03.5 Myxedema coma (principal); G92 Toxic encephalopathy; E87.0 Hyperosmolality and hypernatremia; A04.72 Enterocolitis due to Clostridium difficile, not specified as recurrent; R13.10 Dysphagia, unspecified; E83.42 Hypomagnesemia; K70.30 Alcoholic cirrhosis of liver without ascites; N39.0 Urinary tract infection, site not specified; E51.2 Wernicke's encephalopathy; B96.20 Unspecified Escherichia coli [E. coli] as the cause of diseases classified elsewhere; E11.9 Type 2 diabetes mellitus without complications; B18.2 Chronic viral hepatitis C; Z98.84 Bariatric surgery status; Z87.891 Personal history of nicotine dependence; Z87.440 Personal history of urinary (tract) infections; K29.20 Alcoholic gastritis without bleeding; I10 Essential (primary) hypertension; F32.9 Major depressive disorder, single episode, unspecified; F10.10 Alcohol abuse, uncomplicated; Z71.41 Alcohol abuse counseling and surveillance of alcoholic; E87.6 Hypokalemia; E55.9 Vitamin D deficiency, unspecified; E86.0 Dehydration; H55.09 Other forms of nystagmus; R32 Unspecified urinary incontinence; Z79.899 Other long term (current) drug therapy; Z86.59 Personal history of other mental and behavioral disorders; Z91.19 Patient's noncompliance with other medical treatment and regimen; Z91.5 Personal history of self-harm; E07.81 Sick-euthyroid syndrome; Z88.8 Allergy status to other drugs, medicaments and biological substances
CPT/HCPCS: 36415; 70450; 70496; 71045; 74018; 74230; 80047; 80048; 80053; 80307; 81001; 82140; 82306; 82533; 82607; 82746; 82962; 83735; 84100; 84439; 84443; 84481; 85025; 85610; 85730; 87040; 87077; 87086; 87186; 87324; 87493; 93005; 96365; J0696; J1650; J3370; J3411; J3480; J7070; Q9967; J3475; J7040; J7060